=== PATIENT | female | born 1950 | race Caucasian/White ===

== ENCOUNTER 2020-12-28 11:54 | Inpatient (IN) | payer MEDICARE, SELFPAY ==
[2020-12-28 11:55] VITALS: BP 133/75; PULSE 90; RESP 18; TEMP 36.2; O2SAT 99; BMI 23.4
--- NOTE | 2020-12-28 11:58 | NURSING ---
NO OLD EKGS
--- NOTE | 2020-12-28 12:20 | EKG12_ITS ---
Test Reason : SA Blood Pressure : / mmHG Vent. Rate : 085 BPM Atrial Rate : 085 BPM P-R Int : 154 ms QRS Dur : 078 ms QT Int : 366 ms P-R-T Axes : 034 002 032 degrees QTc Int : 435 ms Suspect unspecified pacemaker failure Normal sinus rhythm Normal ECG Confirmed by MEDARDO PEDROZA, GABBIE ([id number]), newspaper managing editor SARA FINK ([id number]) on 12/31/2020 11:15:05 A M Referred By: KAYLEY Confirmed By:MELLY BATRES MD
--- NOTE | 2020-12-28 12:22 | EDS_ITS ---
HPI History of Present Illness Chief Complaint: Substance Abuse Informant: patient and spouse/S.O. Onset/Context/Timing Onset: Days (2-3) Context: Gradual Onset Timing: Continuous Quality: shaky, anxious Location: all over Current Severity: Moderate Maximum Severity: Moderate Worsened by: after stopped drinking etoh Relieved by: ativan - see below Associated Symptoms Associated Symptoms: Positive for vomiting* (on occasion, not today) and tremor; Negative for diarrhea*, fever*, rash*, seizure, palpatations, sex for drugs* and *HIV Risk Factors:Consider testing if last test > 6 months Narrative Narrative: Patient presenting requesting detox from alcohol. She is a chronic alcoholic, she drinks around 10 beers per day, her last drink was 2 or 3 days ago. [place] is from a town about 20 minutes south of [place], which is maybe 2 hours away from here or more. She has been to multiple facilities in the last several days, she was diagnosed with hyponatremia so detox programs at other places did not want to accept her, she was admitted medically to the hospital at [place], she states they treated her low sodium and said it was related to her alcohol use, she does not have a history of cirrhosis that she knows of. While she was in the hospital she was getting Ativan on occasion and she said that helped temporarily. She is feeling withdrawal symptoms again today. She was referred to the detox program at this hospital by the behavioral health case manager in [place], so she presents here for that reason and medical clearance. Medically, she has had anxiety, tremulousness, fatigue/malaise/generalized weakness, nausea and vomiting on occasion but she does not feel nauseated at this time, and she denies any other symptoms. [facility] Medical History (Updated 12/28/20 @ 14:47 by Keyonna Hill, CHANTELL-C) Alcoholism Atrial fibrillation Breast cancer GERD (gastroesophageal reflux disease) HTN (hypertension) Hyperlipidemia Hypothyroid Pacemaker Vitamin D deficiency Home Medications aspirin 81 mg PO DAILY 12/28/20 [History Last Taken 12/27/20] levothyroxine 25 mcg PO DAILY 12/28/20 [History Last Taken Unknown] lisinopril 20 mg PO DAILY 12/28/20 [History Last Taken Unknown] omeprazole 40 mg PO DAILY 12/28/20 [History Last Taken 12/28/20] rosuvastatin 40 mg PO QHS 12/28/20 [History Last Taken Unknown] thiamine HCl (vitamin B1) 100 mg PO DAILY 12/28/20 [History Last Taken 12/28/20 08:58] Allergy/AdvReac Type Severity Reaction Status Date / Time No Known Allergies Allergy Verified 12/28/20 11:57 Surgical History (Updated 12/28/20 @ 14:43 by Wendy Enamorado) History of appendectomy History of hysterectomy History of modified radical mastectomy of right breast S/P removal of thyroid nodule Social History Smoking Status: Never smoker ROS ROS ED Constitutional Constitutional ED: Reports fatigue and malaise; Denies chills or fever(s) Eyes Eyes: Denies change in vision or diplopia ENT ENT ED: Denies rhinorrhea or sore throat Cardiovascular Cardiovascular: Denies chest pain or palpitations Respiratory/Chest Respiratory/Chest: Denies cough or dyspnea Gastrointestinal Gastrointestinal: Reports nausea; Denies abdominal pain, diarrhea or vomiting Genitourinary Genitourinary ED: Denies dysuria or hematuria Musculoskeletal Musculoskeletal: Denies back pain or neck pain Integumentary Denies abscess or rash Neurologic Neurologic: Denies headache(s), paresthesias or weakness Psychiatric Psychiatric: Reports as per HPI and anxiety; Denies suicidal thoughts EXAM Physical Exam Const Vital Signs: 12/28/20 11:55 12/28/20 14:34 Temperature 97.1 F L 98.2 F Temperature Source Temporal Oral Pulse Rate 90 84 Respiratory Rate 18 16 Blood Pressure 133/75 H 140/99 H Blood Pressure Mean 94 112 Pulse Ox 99 98 Oxygen Delivery Method Room Air Room Air Positive well nourished and well developed General Appearance ED: well developed and NAD HEENT Reports moist mucous membranes normocephalic and atraumatic Eyes PERRL and EOMs intact bilaterally Neck full ROM and supple Resp normal respiratory effort and clear to auscultation bilaterally Cardio regular rate, regular rhythm and no murmurs GI non-tender and non-distended Auscultation: normoactive bowel sounds Palpation: soft Back/Spine no CVA tenderness General Back: other FROM Extremity normal to inspection General Extremety ED: Negative for edema, pulses abnormal or tenderness General Extremity: Negative for edema or pulses abnormal Neuro oriented x3, CN's II-XII intact bilaterally and no sensory deficits noted Sensorium / Orientation: awake and alert Motor Exam: strength 5/5 throughout Skin no rashes or lesions noted and no wounds MDM MDM MDM Narrative Medical decision making narrative: Patient was given Ativan which helped her symptoms. I did review some old records, her sodium was 123 when she was admitted to [place], and 128 when she was discharged. It was diagnosis likely chronic which I agree with. Discussed with hospitalist here for admission and further treatment and evaluation, for detox. Patient is clinically and hemodynamically stable. Lab Data Attestation: I reviewed the patient's lab results. Labs: Laboratory Results - last 24 hr 12/28/20 12/28/20 12/28/20 14:00 14:00 14:20 WBC 5.5 RBC 3.65 L Hgb 11.9 L Hct 35.2 L MCV 96.4 MCH 32.6 H MCHC 33.8 RDW Std Deviation 41.1 RDW Coeff of Brittany 11.6 Plt Count 110 L MPV 9.7 Immature Gran % (Auto) 0.400 Neut % (Auto) 61.3 Lymph % (Auto) 20.8 [place] % (Auto) 9.6 Eos % (Auto) 7.4 H Baso % (Auto) 0.5 Absolute Neuts (auto) 3.4 Absolute Lymphs (auto) 1.15 Nucleated RBC % 0 PT INR Sodium Potassium Chloride Carbon Dioxide Anion Gap BUN Creatinine Estim Creat Clear Calc Est GFR (MDRD) Af Amer Est GFR (MDRD) Non-Af BUN/Creatinine Ratio Glucose Calcium Total Bilirubin AST ALT Alkaline Phosphatase Total Protein Albumin Globulin Albumin/Globulin Ratio Urine Color Yellow Urine Clarity Clear Urine pH 6.0 Ur Specific [place] 1.020 Urine Protein Negative Urine Glucose (UA) Normal Urine Ketones Negative Urine Occult Blood Negative Urine Nitrite Negative Urine Bilirubin Negative Urine Urobilinogen 1 H Ur Leukocyte Esterase Negative Urine RBC 0 SEEN Urine WBC 0-5 SEEN Ur Squamous Epith Cells 0-5 SEEN Urine Bacteria 1+ Urine Mucus 0 SEEN Urine Opiates Screen NEGATIVE Urine Methadone Screen NEGATIVE Ur Barbiturates Screen NEGATIVE Ur Phencyclidine Scrn NEGATIVE Ur Amphetamines Screen NEGATIVE U Methamphetamin-MDMA NEGATIVE U Benzodiazepines Scrn POSITIVE H Urine Cocaine Screen NEGATIVE U Cannabinoids Screen NEGATIVE Ur Drug Screen Comment 12/28/20 12/28/20 14:20 14:20 WBC RBC Hgb Hct MCV MCH MCHC RDW Std Deviation RDW Coeff of Brittany Plt Count MPV Immature Gran % (Auto) Neut % (Auto) Lymph % (Auto) [place] % (Auto) Eos % (Auto) Baso % (Auto) Absolute Neuts (auto) Absolute Lymphs (auto) Nucleated RBC % PT 13.9 INR 1.1 Sodium 135 L Potassium 3.8 Chloride 99 Carbon Dioxide 28.0 Anion Gap 8 BUN 11 Creatinine 1.03 H Estim Creat Clear Calc 44.43 Est GFR (MDRD) Af Amer 68 Est GFR (MDRD) Non-Af 56 L BUN/Creatinine Ratio 10.7 Glucose 103 Calcium 9.7 Total Bilirubin 0.70 AST 76 H ALT 55 Alkaline Phosphatase 123 H Total Protein 7.6 Albumin 3.6 Globulin 4.0 Albumin/Globulin Ratio 0.9 Urine Color Urine Clarity Urine pH Ur Specific [place] Urine Protein Urine Glucose (UA) Urine Ketones Urine Occult Blood Urine Nitrite Urine Bilirubin Urine Urobilinogen Ur Leukocyte Esterase Urine RBC Urine WBC Ur Squamous Epith Cells Urine Bacteria Urine Mucus Urine Opiates Screen Urine Methadone Screen Ur Barbiturates Screen Ur Phencyclidine Scrn Ur Amphetamines Screen U Methamphetamin-MDMA U Benzodiazepines Scrn Urine Cocaine Screen U Cannabinoids Screen Ur Drug Screen Comment EKG Initial EKG: Attestation: I personally reviewed and interpreted this EKG as follows: Interpretation: Sinus Rhythm and No Acute Injury Pattern Comments: normal EKG, rate 85 Prior EKG tracings: not available for review Discharge Plan Dx/Rx/DC Orders Clinical Impression: Alcohol dependence, Alcohol withdrawal Disposition Disposition: Acute Care Hospital [facility]
--- NOTE | 2020-12-28 12:35 | EKG12_ITS ---
Test Reason : SA Blood Pressure : / mmHG Vent. Rate : 085 BPM Atrial Rate : 085 BPM P-R Int : 154 ms QRS Dur : 078 ms QT Int : 366 ms P-R-T Axes : 034 002 032 degrees QTc Int : 435 ms Suspect unspecified pacemaker failure Normal sinus rhythm Normal ECG No previous ECGs available Confirmed by ALEN PEDROZA, NEETU ([id number]), map editor SARA FINK ([id number]) on 01/01/2021 9:51:33 AM Referred By: KAYLEY Confirmed By:NEETU LOWRY MD
--- NOTE | 2020-12-28 13:23 | NURSING ---
NO OLD EKGS
[2020-12-28 14:16] LABS: Mucous, Urine 0 SEEN /hpf (<or=2+); Red Blood Cells-Urine 0 SEEN /hpf (0-5)
[2020-12-28 14:18] LABS: Color, Urine Yellow (Yellow); Glucose, Dipstick Normal (Normal); Ketone-Dipstick Negative (Negative); Leukocyte Esterase-Dipstick Negative /ul (Negative); Nitrite-Dipstick Negative (Negative); Occult Blood-Urine Negative /ul (Negative); Protein-Dipstick Negative (Negative); Urine Bilirubin Dipstick Negative (Negative); Urine Clarity Clear (Clear); Urine Urobilinogen 1 mg/dl (Normal)
[2020-12-28 14:30] LABS: Bacteria 1+ /hpf (None Seen); Squamous Epithelial Cells - UA 0-5 SEEN /hpf (5-10); White Blood Cells 0-5 SEEN /hpf (0-5)
[2020-12-28] MEDS: LORazepam 2 MG/ML Syringe 1 MG IV (14:31)
[2020-12-28] MEDS: 0.9% Normal Saline 1,000 ML 150 ML IV (14:31)
[2020-12-28 14:34] VITALS: BP 140/99; PULSE 84; RESP 16; TEMP 36.8; O2SAT 98
[2020-12-28 14:39] LABS: Absolute Lymphocyte Count 1.15 X10^3/uL (0.83-4.51); Absolute Neutrophil Count 3.4 X10^3/uL (2.0-7.7); Basophil# 0.03 X10^3/uL; Basophil% 0.5 % (0-1); Eosinophil# 0.41 X10^3/uL; Eosinophils% 7.4 % (0-5); Hematocrit 35.2 % (37-47); Hemoglobin 11.9 g/dL (12.0-15.0); Lymphocyte # 1.15 X10^3/ul (0.83-4.51); Lymphocyte % 20.8 % (19-41); Mean Corp Hgb Conc 33.8 g/dL (32-36); Mean Corpuscular Hgb 32.6 pg (27.0-32.0); Mean Corpuscular Volume 96.4 fL (81-99); Mean Platelet Vol. 9.7 fl (6.2-12.0); Monocyte# 0.53 X10^3/uL; Monocyte% 9.6 % (0-10); NRBC Flagged by Analyzer 0 % (0-5); Neutrophil # 3.38 X10^3/uL (2.7-7.7); Neutrophil % 61.3 % (47-70); Platelet Count 110 K/mm3 (150-450); RBC Distribution Width CV 11.6 % (11.6-14.6); RBC Distribution Width SD 41.1 fl (35.1-43.9); Red Blood Count 3.65 M/mm3 (4.2-5.4); White Blood Count 5.5 K/mm3 (4.4-11.0)
--- NOTE | 2020-12-28 14:39 | NURSING ---
MED SURG [facility] ALCOHOL DEPENDENCE/WITHDRAWAL
--- NOTE | 2020-12-28 14:40 | HP.PCM_ITS ---
Documented by User: VIDAL Wolff 12/28/20 14:51 HPI - General HPI Narrative KAY VILLAVICENCIO, is a 70 F who presents today for detoxification from alcohol. Patient states that she was discharged today from a hospital in [facility] following an admission for low sodium and was recommended to [facility] for inpatient detox program. Patient states her last known drink was approximately 3 days ago and reports a daily use of 10-12 beers. Patient currently exhibiting withdrawal symptoms including tremors, anxiety. Patient denies other drug/substance abuse. Labs reviewed from outside facility, sodium 134 this a.m. Other labs unremarkable. [facility] Medical History (Updated 12/28/20 @ 14:47 by VIDAL Wolff) Alcoholism Atrial fibrillation Breast cancer GERD (gastroesophageal reflux disease) HTN (hypertension) Hyperlipidemia Hypothyroid Pacemaker Vitamin D deficiency Home Medications aspirin 81 mg PO DAILY 12/28/20 [History Last Taken 12/27/20] levothyroxine 25 mcg PO DAILY 12/28/20 [History Last Taken 12/28/20] lisinopril 20 mg PO DAILY 12/28/20 [History Last Taken 12/28/20] omeprazole 40 mg PO DAILY 12/28/20 [History Last Taken 12/28/20] rosuvastatin 40 mg PO QHS 12/28/20 [History Last Taken 12/27/20] thiamine HCl (vitamin B1) 100 mg PO DAILY 12/28/20 [History Last Taken 12/28/20 08:58] Allergy/AdvReac Type Severity Reaction Status Date / Time No Known Allergies Allergy Verified 12/28/20 11:57 Surgical History (Updated 12/28/20 @ 14:43 by Wendy Enamorado) History of appendectomy History of hysterectomy History of modified radical mastectomy of right breast S/P removal of thyroid nodule Social History Smoking Status: Never smoker ROS Constitutional Constitutional: Reports fatigue and weakness; Denies anorexia, chills or fever(s) Cardiovascular Cardiovascular: Denies chest pain, edema or palpitations Respiratory/Chest Respiratory/Chest: Denies cough, shortness of breath at rest or shortness of breath with exertion Gastrointestinal Gastrointestinal: Denies abdominal pain, constipation, diarrhea, nausea or vomiting Genitourinary Genitourinary: Denies dysuria Musculoskeletal Musculoskeletal: Denies back pain, extremity pain, joint pain or joint stiffness Integumentary Integumentary: Denies dry skin Neurologic Neurologic: Reports tremor(s) Psychiatric Psychiatric: Reports anxiety and depression Endocrine Endocrinology: Denies change in body appearance Hematologic/Lymphatic Hematologic/Lymphatic: Denies easy bleeding or easy bruising Vital Signs Vital Signs Vital Signs: 12/28/20 11:55 12/28/20 14:34 Temperature 97.1 F L 98.2 F Temperature Source Temporal Oral Pulse Rate 90 84 Respiratory Rate 18 16 Blood Pressure 133/75 H 140/99 H Blood Pressure Mean 94 112 Pulse Ox 99 98 Oxygen Delivery Method Room Air Room Air Weight Weight: 141 lb Body Mass Index (BMI) 23.4 Physical Exam Const alert and oriented x3 HEENT normocephalic and head/scalp atraumatic Eyes conjunctivae normal and no scleral icterus Neck no lymphadenopathy, supple and no JVD General: trachea midline Resp normal respiratory effort, normal air movement and clear to auscultation bilaterally Cardio regular rate, regular rhythm, S1 normal heart sound and S2 normal heart sound GI normal to inspection, nondistended, normoactive bowel sounds, soft to palpation and non-tender Extremity normal capillary refill and no clubbing, cyanosis or edema General Extremity: no tenderness to palpation of joints or extremities Skin General Skin Exam: no breakdown and turgor normal Lesions: no lesions Rashes: no rashes Neuro oriented x3 and moves all extremities Speech: speech normal Motor Exam: tremor Type: Positive for resting Positive for bilateral upper extremity Psych cooperative Appearance: appropriate Mood & Affect: anxious Results Lab / Micro Data Result Diagrams: 12/28/20 14:20 12/28/20 14:20 Labs: Laboratory Results - last 24 hr 12/28/20 12/28/20 12/28/20 14:00 14:00 14:20 WBC 5.5 RBC 3.65 L Hgb 11.9 L Hct 35.2 L MCV 96.4 MCH 32.6 H MCHC 33.8 RDW Std Deviation 41.1 RDW Coeff of Brittany 11.6 Plt Count 110 L MPV 9.7 Immature Gran % (Auto) 0.400 Neut % (Auto) 61.3 Lymph % (Auto) 20.8 [place] % (Auto) 9.6 Eos % (Auto) 7.4 H Baso % (Auto) 0.5 Absolute Neuts (auto) 3.4 Absolute Lymphs (auto) 1.15 Nucleated RBC % 0 Urine Color Yellow Urine Clarity Clear Urine pH 6.0 Ur Specific [place] 1.020 Urine Protein Negative Urine Glucose (UA) Normal Urine Ketones Negative Urine Occult Blood Negative Urine Nitrite Negative Urine Bilirubin Negative Urine Urobilinogen 1 H Ur Leukocyte Esterase Negative Urine RBC 0 SEEN Urine WBC 0-5 SEEN Ur Squamous Epith Cells 0-5 SEEN Urine Bacteria 1+ Urine Mucus 0 SEEN Ur Drug Screen Comment Assessment & Plan Assessment/Plan (1) Alcohol withdrawal: QUALIFIERS: Complication of substance-induced condition: uncomplicated Qualified Code(s): F10.230 - Alcohol dependence with withdrawal, uncomplicated PLAN: 1. Alcohol withdrawal -Admit to [facility] for participation in the withdrawal program -Phenobarb taper ordered along with CIWA's -Supportive medications also ordered per protocol -Oxygen per protocol -Case management consulted for coordination with outpatient 180 program -Vital signs per protocol 2. Hyponatremia -Sodium 134 this morning per outside laboratory results -Will monitor with daily BMP 3. Hypertension -Currently elevated at 140/99, however likely due to patient's withdrawal from alcohol -Will continue lisinopril daily -Vital signs per protocol, trend BP and heart rate 4. Hypothyroidism -Continue levothyroxine DVT prophylaxis-no pharmacological prophylaxis indicated, encourage ambulation This patient was seen by VIDAL Wolff under the supervision of Dr. Indira watters. Documented by User: Dr. Sergio Heart DO 12/28/20 15:58 HPI - General General Date of Admission: 12/28/20 [facility] Medical History (Updated 12/28/20 @ 14:47 by VIDAL Wolff) Alcoholism Atrial fibrillation Breast cancer GERD (gastroesophageal reflux disease) HTN (hypertension) Hyperlipidemia Hypothyroid Pacemaker Vitamin D deficiency Home Medications aspirin 81 mg PO DAILY 12/28/20 [History Last Taken 12/27/20] levothyroxine 25 mcg PO DAILY 12/28/20 [History Last Taken 12/28/20] lisinopril 20 mg PO DAILY 12/28/20 [History Last Taken 12/28/20] omeprazole 40 mg PO DAILY 12/28/20 [History Last Taken 12/28/20] rosuvastatin 40 mg PO QHS 12/28/20 [History Last Taken 12/27/20] thiamine HCl (vitamin B1) 100 mg PO DAILY 12/28/20 [History Last Taken 12/28/20 08:58] Allergy/AdvReac Type Severity Reaction Status Date / Time No Known Allergies Allergy Verified 12/28/20 11:57 Surgical History (Updated 12/28/20 @ 14:43 by Wendy Enamorado) History of appendectomy History of hysterectomy History of modified radical mastectomy of right breast S/P removal of thyroid nodule Social History Smoking Status: Never smoker Results Lab / Micro Data Result Diagrams: 12/28/20 14:20 12/28/20 14:20 Charges/Coding Addendum Addendum: Patient was seen and examined independently of Cristiane Hill, she came to the emergency room at [facility] requesting services for alcohol detox, she had been discharged from a hospital this morning, she had been hospitalized for hyponatremia, patient has not had anything to drink in 4 days. She complains of feeling nervous and anxious. On examination she appeared in good health and spirits, she does not appear to be in any distress. Vital signs as documented. Skin warm and dry and without overt rashes. Neck without JVD, thyroid appears normal, trachea is midline, neck is supple. Lungs clear, normal air movement was noted. Heart exam notable for regular rhythm, normal sounds and absence of murmurs, rubs or gallops. Abdomen unremarkable and without evidence of organomegaly, masses, or abdominal aortic enlargement, bowel sounds are present in all 4 quadrants, no abdominal tenderness was noted. Extremities nonedematous, no cyanosis was noted, no clubbing was noted. Neuro: Cranial nerves II through XII are grossly intact, no focal motor deficits were noted, sensation to light touch and pinprick is intact, motor exam 5/5 throughout. Psych: Patient is alert and oriented x3, she does appear slightly anxious Patient will be admitted to MedSurg 3 using the alcohol detox order set, patient told me she prefers to do inpatient detox services after she is discharged from the hospital here. I have reviewed Cristiane Arnett's history and physical including her medical assessment and plan of care and endorse it. Visit Charges Inpatient E&M: [id number] Init Hosp L3
[2020-12-28 14:47] LABS: ALB/GLOB Ratio 0.9 RATIO (0.9-2.4); AST(SGOT) 76 U/L (15-37); Alanine Aminotransfer ALT/SGPT 55 U/L (13-56); Albumin, Serum 3.6 g/dL (3.2-5.0); Alkaline Phosphatase 123 U/L (45-117); Anion Gap 8 (5-15); BUN 11 mg/dL (7-18); BUN/Creat Ratio 10.7 RATIO (10-20); Calcium,Total 9.7 mg/dL (8.5-10.1); Chloride 99 mmol/L (98-107); Creatinine, Serum 1.03 mg/dL (0.55-1.02); EST Glomerular Filtration Rate 56 mL/min (>60); Est Glom Filt Rate - Afr Amer 68 mL/min (>60); Estimated Creatinine Clearance 44.43 ml/min; Glucose 103 mg/dL (74-106); International Normalized Ratio 1.1; Potassium 3.8 mmol/L (3.5-5.1); Protein, Total 7.6 g/dL (6.4-8.2); Prothrombin Time (Protime)PT. 13.9 SECONDS (11.7-14.9); Sodium Level 135 mmol/L (136-145)
[2020-12-28 14:53] LABS: Amphetamine Urine VISTA NEGATIVE (<1000 ng/mL); Barbiturate Urine VISTA NEGATIVE (< 200 ng/mL); Benzodiazepine Urine VISTA POSITIVE (< 200 ng/mL); Cocaine Urine VISTA NEGATIVE (< 300 ng/mL); Ecstacy Urine VISTA NEGATIVE (< 500 ng/mL); Methadone Urine VISTA NEGATIVE (< 300 ng/mL); PCP Urine VISTA NEGATIVE (< 25 ng/mL); THC Urine VISTA NEGATIVE (< 50 ng/mL); Vista UDS pH Range 6
--- NOTE | 2020-12-28 14:58 | NURSING ---
RM [id number]
[2020-12-28 15:34] VITALS: BMI 21.2
[2020-12-28 15:40] VITALS: BP 157/92; PULSE 80; RESP 16; TEMP 36.7; O2SAT 97
[2020-12-28] MEDS: Phenobarbital 32.4 MG Tablet PO ×2 (16:09→20:18)
--- NOTE | 2020-12-28 16:19 | CM.ED ---
Sw Note SHELDON called [employer] and left voice mail message for July advising of patient's admission to [facility] program. SHELDON requested call back. Plan: JAZMIN WALKER
--- NOTE | 2020-12-28 18:29 | CM.ED ---
SHELODN Note Reason for Referral: [facility] admission Referral Source: Case Find SW called Treatment Navigator at [facility] and spoke to July. SHELDON updated July about patient's admission to [facility]. July will be in tomorrow to see patient. Plan: Treatment Navigator will follow up with patient. Vivi WALKER
[2020-12-28 20:11] VITALS: BP 160/96; PULSE 86; RESP 18; TEMP 36.5; O2SAT 100
[2020-12-28] MEDS: hydrOXYzine PAM 25 MG Capsule 50 MG PO (20:18)
[2020-12-28] MEDS: Ondansetron 8 MG Tablet PO (20:18)
[2020-12-28 22:05] VITALS: BP 141/84; PULSE 80; RESP 18; TEMP 36.5; O2SAT 100
[2020-12-28] MEDS: traZODone 100 MG Tablet PO (22:09)
[2020-12-28] MEDS: Atorvastatin Calcium 80 MG Tablet PO (22:09)
[2020-12-29] VITALS (8 sets, daily range): BP systolic 98–130; BP diastolic 64–85; PULSE 58–99; RESP 16–18; TEMP 36.2–36.6; O2SAT 94–99; BMI 21.2
[2020-12-29] MEDS: Gabapentin 300 MG Capsule PO (00:05)
[2020-12-29] MEDS: Phenobarbital 32.4 MG Tablet PO ×6 (00:05→19:57)
[2020-12-29] MEDS: hydrOXYzine PAM 25 MG Capsule 50 MG PO (04:53)
[2020-12-29] MEDS: Levothyroxine 25 MCG TABLET PO (04:53)
[2020-12-29 06:48] LABS: Anion Gap 8 (5-15); BUN 10 mg/dL (7-18); BUN/Creat Ratio 10.9 RATIO (10-20); Calcium,Total 8.9 mg/dL (8.5-10.1); Chloride 104 mmol/L (98-107); Creatinine, Serum 0.92 mg/dL (0.55-1.02); EST Glomerular Filtration Rate 64 mL/min (>60); Est Glom Filt Rate - Afr Amer 77 mL/min (>60); Estimated Creatinine Clearance 49.74 ml/min; Glucose 101 mg/dL (74-106); Potassium 3.7 mmol/L (3.5-5.1); Sodium Level 137 mmol/L (136-145)
[2020-12-29] MEDS: Folic Acid 1 MG Tablet PO (07:58)
[2020-12-29] MEDS: Pantoprazole Sodium 40 MG Tablet PO (07:58)
[2020-12-29] MEDS: Lisinopril 20 MG Tablet PO (07:58)
[2020-12-29] MEDS: Thiamine Hydrochloride 100 MG Tablet PO (07:58)
[2020-12-29] MEDS: Aspirin 81 MG TAB.CHEW PO (08:00)
--- NOTE | 2020-12-29 10:39 | PN.HOSP_ITS ---
Documented by User: Keyonna Hill NP-C 12/29/20 10:44 Subjective Subjective Patient seen and examined. Patient sitting in bed eating breakfast no distress noted. Patient states that she still is not feeling well. Patient reports tremors and some residual weakness from hyponatremia. Patient currently denies fever, chills, shortness of breath, chest pain, nausea, vomiting. Objective Data Objective Data Vital Signs: Vital Signs Temp Pulse Resp BP Pulse Ox 97.4 F L 58 L 16 98/76 99 12/29/20 08:53 12/29/20 08:53 12/29/20 08:53 12/29/20 08:53 12/29/20 08:53 Oxygen Delivery Method Room Air Weight: 127 lb 3.2 oz Body Mass Index (BMI) 21.2 Intake & Output: Intake and Output for Last 24 Hours 12/27/20 12/28/20 12/29/20 23:59 23:59 23:59 Intake Total 1277.5 / 1277.5 350 / 350 Balance 1277.5 / 1277.5 350 / 350 Lab / Micro Data Result Diagrams: 12/28/20 14:20 12/29/20 06:18 Labs: Laboratory Results - last 24 hr 12/28/20 12/28/20 12/28/20 14:00 14:00 14:20 WBC 5.5 RBC 3.65 L Hgb 11.9 L Hct 35.2 L MCV 96.4 MCH 32.6 H MCHC 33.8 RDW Std Deviation 41.1 RDW Coeff of Brittany 11.6 Plt Count 110 L MPV 9.7 Immature Gran % (Auto) 0.400 Neut % (Auto) 61.3 Lymph % (Auto) 20.8 [place] % (Auto) 9.6 Eos % (Auto) 7.4 H Baso % (Auto) 0.5 Absolute Neuts (auto) 3.4 Absolute Lymphs (auto) 1.15 Nucleated RBC % 0 PT INR Sodium Potassium Chloride Carbon Dioxide Anion Gap BUN Creatinine Estim Creat Clear Calc Est GFR (MDRD) Af Amer Est GFR (MDRD) Non-Af BUN/Creatinine Ratio Glucose Calcium Total Bilirubin AST ALT Alkaline Phosphatase Total Protein Albumin Globulin Albumin/Globulin Ratio Urine Color Yellow Urine Clarity Clear Urine pH 6.0 Ur Specific [place] 1.020 Urine Protein Negative Urine Glucose (UA) Normal Urine Ketones Negative Urine Occult Blood Negative Urine Nitrite Negative Urine Bilirubin Negative Urine Urobilinogen 1 H Ur Leukocyte Esterase Negative Urine RBC 0 SEEN Urine WBC 0-5 SEEN Ur Squamous Epith Cells 0-5 SEEN Urine Bacteria 1+ Urine Mucus 0 SEEN Urine Opiates Screen NEGATIVE Urine Methadone Screen NEGATIVE Ur Barbiturates Screen NEGATIVE Ur Phencyclidine Scrn NEGATIVE Ur Amphetamines Screen NEGATIVE U Methamphetamin-MDMA NEGATIVE U Benzodiazepines Scrn POSITIVE H Urine Cocaine Screen NEGATIVE U Cannabinoids Screen NEGATIVE Ur Drug Screen Comment Ethyl Alcohol 12/28/20 12/28/20 12/28/20 14:20 14:20 14:20 WBC RBC Hgb Hct MCV MCH MCHC RDW Std Deviation RDW Coeff of Brittany Plt Count MPV Immature Gran % (Auto) Neut % (Auto) Lymph % (Auto) [place] % (Auto) Eos % (Auto) Baso % (Auto) Absolute Neuts (auto) Absolute Lymphs (auto) Nucleated RBC % PT 13.9 INR 1.1 Sodium 135 L Potassium 3.8 Chloride 99 Carbon Dioxide 28.0 Anion Gap 8 BUN 11 Creatinine 1.03 H Estim Creat Clear Calc 44.43 Est GFR (MDRD) Af Amer 68 Est GFR (MDRD) Non-Af 56 L BUN/Creatinine Ratio 10.7 Glucose 103 Calcium 9.7 Total Bilirubin 0.70 AST 76 H ALT 55 Alkaline Phosphatase 123 H Total Protein 7.6 Albumin 3.6 Globulin 4.0 Albumin/Globulin Ratio 0.9 Urine Color Urine Clarity Urine pH Ur Specific [place] Urine Protein Urine Glucose (UA) Urine Ketones Urine Occult Blood Urine Nitrite Urine Bilirubin Urine Urobilinogen Ur Leukocyte Esterase Urine RBC Urine WBC Ur Squamous Epith Cells Urine Bacteria Urine Mucus Urine Opiates Screen Urine Methadone Screen Ur Barbiturates Screen Ur Phencyclidine Scrn Ur Amphetamines Screen U Methamphetamin-MDMA U Benzodiazepines Scrn Urine Cocaine Screen U Cannabinoids Screen Ur Drug Screen Comment Ethyl Alcohol 6.0 12/29/20 06:18 WBC RBC Hgb Hct MCV MCH MCHC RDW Std Deviation RDW Coeff of Brittany Plt Count MPV Immature Gran % (Auto) Neut % (Auto) Lymph % (Auto) [place] % (Auto) Eos % (Auto) Baso % (Auto) Absolute Neuts (auto) Absolute Lymphs (auto) Nucleated RBC % PT INR Sodium 137 Potassium 3.7 Chloride 104 Carbon Dioxide 25.0 Anion Gap 8 BUN 10 Creatinine 0.92 Estim Creat Clear Calc 49.74 Est GFR (MDRD) Af Amer 77 Est GFR (MDRD) Non-Af 64 BUN/Creatinine Ratio 10.9 Glucose 101 Calcium 8.9 Total Bilirubin AST ALT Alkaline Phosphatase Total Protein Albumin Globulin Albumin/Globulin Ratio Urine Color Urine Clarity Urine pH Ur Specific [place] Urine Protein Urine Glucose (UA) Urine Ketones Urine Occult Blood Urine Nitrite Urine Bilirubin Urine Urobilinogen Ur Leukocyte Esterase Urine RBC Urine WBC Ur Squamous Epith Cells Urine Bacteria Urine Mucus Urine Opiates Screen Urine Methadone Screen Ur Barbiturates Screen Ur Phencyclidine Scrn Ur Amphetamines Screen U Methamphetamin-MDMA U Benzodiazepines Scrn Urine Cocaine Screen U Cannabinoids Screen Ur Drug Screen Comment Ethyl Alcohol Physical Exam Const alert and oriented x3 HEENT normocephalic and head/scalp atraumatic Eyes conjunctivae normal and no scleral icterus Neck no lymphadenopathy, supple and no JVD General: trachea midline Resp normal respiratory effort, normal air movement and clear to auscultation bilaterally Cardio regular rate, regular rhythm, S1 normal heart sound and S2 normal heart sound GI normal to inspection, nondistended, normoactive bowel sounds, soft to palpation and non-tender Extremity normal capillary refill and no clubbing, cyanosis or edema General Extremity: no tenderness to palpation of joints or extremities Peripheral Pulses: Yes pulses 2+ throughout Skin General Skin Exam: no breakdown and turgor normal Lesions: no lesions Rashes: no rashes Neuro oriented x3 and moves all extremities Speech: speech normal Motor Exam: tremor Type: Positive for resting Positive for bilateral upper extremity Psych mental status grossly normal, thought process normal and cooperative Appearance: appropriate Attitude: withdrawn Mood & Affect: anxious Assessment & Plan Assessment/Plan (1) Alcohol dependence: QUALIFIERS: Complication of substance-induced condition: uncomplicated Substance use status: in withdrawal Qualified Code(s): F10.230 - Alcohol dependence with withdrawal, uncomplicated (2) Alcohol withdrawal: QUALIFIERS: Complication of substance-induced condition: uncomplicated Qualified Code(s): F10.230 - Alcohol dependence with withdrawal, uncomplicated PLAN: 1. Alcohol withdrawal -Continue phenobarb taper along with CIWA's -Supportive medications also ordered per protocol -Oxygen per protocol -Case management consulted for coordination with outpatient 180 program, patient would like to transition to residential inpatient program upon discharge -Vital signs per protocol 2. Hyponatremia -Resolved, sodium 137 this morning 3. Hypertension -Stable -Will continue lisinopril daily -Vital signs per protocol, trend BP and heart rate 4. Hypothyroidism -Continue levothyroxine DVT prophylaxis-no pharmacological prophylaxis indicated, encourage ambulation This patient was seen by VIDAL Wolff under the supervision of Dr. Mcpherson. Documented by User: Dr. Katie Mcpherson MD 12/29/20 17:00 Objective Data Lab / Micro Data Result Diagrams: 12/28/20 14:20 12/29/20 06:18 Charges/Coding Addendum Addendum: Patient seen by Keyonna DRAKE under my supervision Patient seen and examined. She was admitted for alcohol detox. She told feels weak and lethargic complains of some tremors. Review of systems otherwise neg ative. O/E: Const alert and oriented x3 HEENT normocephalic and head/scalp atraumatic Eyes conjunctivae normal and no scleral icterus Neck no lymphadenopathy, supple and no JVD General: trachea midline Resp normal respiratory effort, normal air movement and clear to auscultation bilaterally Cardio regular rate, regular rhythm, S1 normal heart sound and S2 normal heart sound GI normal to inspection, nondistended, normoactive bowel sounds, soft to palpation and non-tender Extremity normal capillary refill and no clubbing, cyanosis or edema General Extremity: no tenderness to palpation of joints or extremities Peripheral Pulses: Yes pulses 2+ throughout Skin General Skin Exam: no breakdown and turgor normal Lesions: no lesions Rashes: no rashes Neuro oriented x3 and moves all extremities Speech: speech normal Motor Exam: tremor Type: Positive for resting Positive for bilateral upper extremity Psych mental status grossly normal, thought process normal and cooperative Appearance:flat affect Attitude: withdrawn Mood & Affect: Plan is to continue on alcohol withdrawal. P.o. thiamine, multivitamin folic acid. Hyponatremia is resolved with sodium being 137 today. Continue lisinopril for high blood pressure and continue Synthroid. Encourage ambulation for DVT prophylaxis. Rest as per Keyonna Hill, AUTO RENTAL SUPERVISOR-C's note which I have reviewed and endorsed. Visit Charges Inpatient E&M: 32251 Subs Hosp L2
--- NOTE | 2020-12-29 16:45 | EX.NTREPO ---
Medical Nutrition Therapy - History Nutrition Services has been consulted to:: Manage nutrient details of diet order Current diet/nutrition support order:: Cardiac diet--select - Anthropometric Measurements Height:: 5 ft 5 in Weight:: 57.7 kg Body Mass Index (BMI):: 21.2 - Relevant Labs Relevant Labs:: RBC 3.65 M/mm3 (4.2-5.4) L 12/28/20 14:20 Hgb 11.9 g/dL (12.0-15.0) L 12/28/20 14:20 Hct 35.2 % (37-47) L 12/28/20 14:20 MCH 32.6 pg (27.0-32.0) H 12/28/20 14:20 Plt Count 110 K/mm3 (150-450) L 12/28/20 14:20 Eos % (Auto) 7.4 % (0-5) H 12/28/20 14:20 Sodium 135 mmol/L (136-145) L 12/28/20 14:20 Creatinine 1.03 mg/dL (0.55-1.02) H 12/28/20 14:20 Est GFR (MDRD) Non-Af 56 mL/min (>60) L 12/28/20 14:20 AST 76 U/L (15-37) H 12/28/20 14:20 Alkaline Phosphatase 123 U/L (45-117) H 12/28/20 14:20 - Assessment Food and Nutrient Intake: Pt reports just me and my cats so, why cook pt has not been eating or cooking for the past 5-6 months; denies difficulty chewing and swallowing. Pt took more than 50% of breakfast today but, dislikes eggs. Pt will not take ensure as she reports that it makes me throw up Pt is willing to try blanca magic cup and blanca milkshakes for tolerance--will offer w/ meals. Wt loss~25% over the past 5-6 months is significant for severe malnutrition especially given oral intake meeting less than 50% over the past 6-8 months per pt report. +NFPA and pt with clavicular, orbital and temporal muscle/fat wasting. - Nutrition Diagnosis: Clinical Problem Chronic Disease or Condition Related Malnutrition Clinical Problem - Etiology: Severe Protein-Calorie Malnutrition in the context of social circumstance related to ETOH abuse/starvation Clinical Problem - Signs/Symptoms: as evidenced by wt loss~25% over the past 5-6 months, oral intake meeting less than 50% over the past 6-8 months per pt report and +nutrition focused physical exam showing moderate clavicular, orbital and temporal muscle/fat wasting. Status: Active Problem - Protein Calorie Malnutrition Evidence of Malnutrition Exists: Yes Severe Protein Calorie Malnutrition:: Social/Behavioral/Environmental - Nutrition Intervention Nutrition Prescription: Estimated nutrition needs~5620-3118 kcal (30 kcal/Kg +250 kcal) and ~80-90 gm pro (1.5 gm pro/Kg) per day. Estimated fluid needs~1700-1900ml/day (30 ml/Kg). - Food / Nutrient Delivery Interventions Summary of nutrition intervention:: Adjust diet order, Provide oral nutrition supplement Nutrition support ordered as / adjusted to:: Given severe protein-energy malnutrition, will liberalize diet to regular/no added salt. Will offer blanca magic cup BID w/ lunch and dinner in addition to blanca magic cup milkshake w/ breakfast to provide an additional 870 kcal and 27 gm protein if consumed. Pt dislikes ensure (both enlive and clear) so, will not provide per pt request. Nutrition education provided?: Yes - ?patient's understanding but, willing to try magic cup only - MNT Monitoring Active Nutrition Patient: Yes Nutrition Status: Requires Follow Up 3-5 Days
[2020-12-30] VITALS (7 sets, daily range): BP systolic 107–138; BP diastolic 67–84; PULSE 81–91; RESP 16–18; TEMP 36.2–36.6; O2SAT 95–98
[2020-12-30] MEDS: Atorvastatin Calcium 80 MG Tablet PO ×2 (00:02→20:44)
[2020-12-30] MEDS: Phenobarbital 32.4 MG Tablet PO ×6 (00:02→20:14)
[2020-12-30] MEDS: Levothyroxine 25 MCG TABLET PO (05:06)
[2020-12-30] MEDS: Pantoprazole Sodium 40 MG Tablet PO (08:46)
[2020-12-30] MEDS: Thiamine Hydrochloride 100 MG Tablet PO (08:46)
[2020-12-30] MEDS: Lisinopril 20 MG Tablet PO (08:46)
[2020-12-30] MEDS: Folic Acid 1 MG Tablet PO (08:46)
[2020-12-30] MEDS: Aspirin 81 MG TAB.CHEW PO ×2 (08:47)
--- NOTE | 2020-12-30 13:35 | PN.HOSP_ITS ---
Subjective Subjective Patient seen and examined. She was much more alert this morning and says she had had some tremors earlier in the morning but had improved. She had no other complaints and review of systems otherwise negative. She has remained hemodynamically stable. Objective Data Objective Data Vital Signs: Vital Signs Temp Pulse Resp BP Pulse Ox 97.2 F L 85 18 107/67 97 12/30/20 11:15 12/30/20 11:15 12/30/20 11:15 12/30/20 11:15 12/30/20 11:15 Oxygen Delivery Method Room Air Weight: 127 lb 3.307 oz Body Mass Index (BMI) 21.2 Intake & Output: Intake and Output for Last 24 Hours 12/28/20 12/29/20 12/30/20 23:59 23:59 23:59 Intake Total 1277.5 / 1277.5 1300 / 1300 480 / 480 Balance 1277.5 / 1277.5 1300 / 1300 480 / 480 Lab / Micro Data Result Diagrams: 12/28/20 14:20 12/29/20 06:18 Physical Exam Const alert, oriented x3 and no apparent distress Exam Limitations: no limitations HEENT head/scalp atraumatic, moist oral mucous membranes and oropharynx normal Head and Scalp: normocephalic Eyes PERRL, EOMs intact bilaterally and conjunctivae normal Neck no lymphadenopathy Resp normal respiratory effort, no retractions, no use of accessory muscles and clear to auscultation bilaterally Cardio regular rate, regular rhythm, S1 normal heart sound, S2 normal heart sound and no murmurs GI normal to inspection, nondistended, normoactive bowel sounds, soft to palpation, non-tender and non-distended Extremity normal to inspection, full ROM and no clubbing, cyanosis or edema Peripheral Pulses: Yes pulses 2+ throughout Skin no rashes or lesions noted Neuro oriented x3 and moves all extremities Sensorium / Orientation: awake and alert Motor Exam: strength 5/5 throughout Psych affect normal Assessment & Plan Assessment/Plan (1) Alcohol dependence: QUALIFIERS: Substance use status: in withdrawal Complication of substance-induced condition: uncomplicated Qualified Code(s): F10.230 - Alcohol dependence with withdrawal, uncomplicated (2) Alcohol withdrawal: QUALIFIERS: Complication of substance-induced condition: u ncomplicated Qualified Code(s): F10.230 - Alcohol dependence with withdrawal, uncomplicated PLAN: #Acute alcohol withdrawal * on alcohol withdrawal protocol with phenobarbital * on thiamine, folic acid and multivites * adjunctive meds for supportive treatment * #Hypertension; on lisinopril. DVT prophylaxis: low risk. Encouraged to ambulate Disposition: wants to go to an inpatient rehab facility once acute detox is completed. Case management to help facilitate discharge. Charges/Coding Visit Charges Inpatient E&M: 45228 Subs Hosp L2
[2020-12-31] VITALS (10 sets, daily range): BP systolic 134–166; BP diastolic 79–88; PULSE 80–91; RESP 16–18; TEMP 36.3–36.9; O2SAT 96–100
[2020-12-31] MEDS: Phenobarbital 32.4 MG Tablet PO ×5 (00:20→23:14)
[2020-12-31] MEDS: Levothyroxine 25 MCG TABLET PO (05:05)
[2020-12-31] MEDS: Aspirin 81 MG TAB.CHEW PO (07:57)
[2020-12-31] MEDS: Thiamine Hydrochloride 100 MG Tablet PO (07:57)
[2020-12-31] MEDS: Folic Acid 1 MG Tablet PO (07:57)
[2020-12-31] MEDS: Pantoprazole Sodium 40 MG Tablet PO (09:45)
[2020-12-31] MEDS: Lisinopril 20 MG Tablet PO (09:45)
--- NOTE | 2020-12-31 10:42 | PCM.PN.HOSP ---
Subjective Subjective Patient was seen and examined. No new complaints. No acute events overnight. Objective Data Objective Data Vital Signs: Vital Signs Temp Pulse Resp BP Pulse Ox 98.1 F 83 18 160/79 H 100 12/31/20 07:51 12/31/20 07:51 12/31/20 07:51 12/31/20 07:51 12/31/20 07:51 Oxygen Delivery Method Room Air Weight: 57.7 kg Body Mass Index (BMI) 21.2 Intake & Output: Intake and Output for Last 24 Hours 12/29/20 12/30/20 12/31/20 23:59 23:59 23:59 Intake Total 1300 / 1300 880 / 880 Balance 1300 / 1300 880 / 880 Lab / Micro Data Result Diagrams: 12/28/20 14:20 12/29/20 06:18 Physical Exam Narrative Physical exam: General: Alert, Oriented x3, appears lethargic, cooperative, No apparent distress, Well developed HEENT: Atraumatic Oral: Moist Mucosa Neck: Supple Lungs: Clear to auscultation Cardiovascular: HS I+II, regular, no murmurs Abdomen: Bowel Sounds Present, Soft, Non Tender Extremities: No edema Skin: No rashes, No breakdown Neurological: Grossly intact Assessment & Plan Assessment/Plan (1) Alcohol dependence: QUALIFIERS: Substance use status: in withdrawal Complication of substance-induced condition: uncomplicated Qualified Code(s): F10.230 - Alcohol dependence with withdrawal, uncomplicated (2) Alcohol withdrawal: QUALIFIERS: Complication of substance-induced condition: uncomplicated Qualified Code(s): F10.230 - Alcohol dependence with withdrawal, uncomplicated PLAN: 1. Acute alcohol withdrawal, continue on the phenobarbital withdrawal protocol 2. Hypertension, controlled, continue lisinopril 3. Debility related to the above 4. Rest of chronic medical conditions remained stable Meds reviewed Charges/Coding Visit Charges Inpatient E&M: 30876 Subs Hosp L2
--- NOTE | 2020-12-31 12:55 | CASEMGMT ---
SHELDON Cappsah Crawford called Vesna Chandler w/ [facility] to clarify discharge plan from their perspective, message left. SW met w/pt in regard to discharge plan as pt was unsteady with therapy today. Pt is normally independent, lives home alone, uses no DME. Her moved out 6-7 months ago. SW spoke w/pt about going somewhere to gain physical strength and function, to a [place] [facility] [place]. Pt states she is looking for help with her drinking, and wants to go to a residential program for this, not to a fdc. SW did give her a list of [place] [facility] [place] facilities in her geographic area that take her insurance. SW explained that there may be a chance she would be too weak to go straight to a residential program, and she may want to consider going to a [place] [facility] [place] facility initially. Pt expressed frustration, states she has been in 3 hospitals and still hasn't gotten the help she needs. SW offered support. SW will continue to follow, waiting to hear back from Vesna at . [facility]
[2020-12-31] MEDS: hydrOXYzine PAM 25 MG Capsule 50 MG PO (20:33)
[2020-12-31] MEDS: Atorvastatin Calcium 80 MG Tablet PO (20:33)
[2020-12-31] MEDS: traZODone 100 MG Tablet PO (23:14)
[2020-12-31] MEDS: Gabapentin 300 MG Capsule PO (23:14)
[2021-01-01 05:51] VITALS: BP 115/78; PULSE 81; RESP 14; TEMP 36.4; O2SAT 96
[2021-01-01] MEDS: Levothyroxine 25 MCG TABLET PO (06:08)
[2021-01-01] MEDS: Phenobarbital 32.4 MG Tablet PO ×3 (06:08→18:18)
[2021-01-01] MEDS: 0.9% Saline Lock 10 ML Syringe IV ×3 (06:08→21:48)
[2021-01-01 08:24] VITALS: BP 127/85; PULSE 80; RESP 18; TEMP 36.7; O2SAT 95
[2021-01-01] MEDS: Pantoprazole Sodium 40 MG Tablet PO (08:38)
[2021-01-01] MEDS: Aspirin 81 MG TAB.CHEW PO (08:38)
[2021-01-01] MEDS: Thiamine Hydrochloride 100 MG Tablet PO (08:38)
[2021-01-01] MEDS: Folic Acid 1 MG Tablet PO (08:38)
[2021-01-01] MEDS: Lisinopril 20 MG Tablet PO (08:38)
[2021-01-01 08:58] LABS: Absolute Lymphocyte Count 1.35 X10^3/uL (0.83-4.51); Absolute Neutrophil Count 2.6 X10^3/uL (2.0-7.7); Basophil# 0.04 X10^3/uL; Basophil% 0.8 % (0-1); Eosinophil# 0.57 X10^3/uL; Eosinophils% 10.9 % (0-5); Hematocrit 33.2 % (37-47); Hemoglobin 11.2 g/dL (12.0-15.0); Lymphocyte # 1.35 X10^3/ul (0.83-4.51); Lymphocyte % 25.9 % (19-41); Mean Corp Hgb Conc 33.7 g/dL (32-36); Mean Corpuscular Hgb 32.7 pg (27.0-32.0); Mean Corpuscular Volume 97.1 fL (81-99); Mean Platelet Vol. 9.5 fl (6.2-12.0); Monocyte% 13.4 % (0-10); NRBC Flagged by Analyzer 0 % (0-5); Neutrophil # 2.55 X10^3/uL (2.7-7.7); Neutrophil % 48.8 % (47-70); Platelet Count 155 K/mm3 (150-450); RBC Distribution Width CV 11.9 % (11.6-14.6); RBC Distribution Width SD 42.6 fl (35.1-43.9); Red Blood Count 3.42 M/mm3 (4.2-5.4); White Blood Count 5.2 K/mm3 (4.4-11.0)
[2021-01-01 09:21] VITALS: O2SAT 95
[2021-01-01 09:24] LABS: ALB/GLOB Ratio 0.8 RATIO (0.9-2.4); AST(SGOT) 41 U/L (15-37); Alanine Aminotransfer ALT/SGPT 36 U/L (13-56); Alkaline Phosphatase 115 U/L (45-117); Anion Gap 7 (5-15); BUN 10 mg/dL (7-18); BUN/Creat Ratio 10.6 RATIO (10-20); Calcium,Total 9.1 mg/dL (8.5-10.1); Chloride 104 mmol/L (98-107); Creatinine, Serum 0.94 mg/dL (0.55-1.02); EST Glomerular Filtration Rate 62 mL/min (>60); Est Glom Filt Rate - Afr Amer 75 mL/min (>60); Estimated Creatinine Clearance 48.68 ml/min; Globulin 3.6 g/dL (2.2-4.2); Glucose 88 mg/dL (74-106); Potassium 3.8 mmol/L (3.5-5.1); Protein, Total 6.6 g/dL (6.4-8.2); Sodium Level 137 mmol/L (136-145)
--- NOTE | 2021-01-01 11:11 | PCM.PN.HOSP ---
Subjective Subjective Patient was seen and examined. No acute events overnight. She complains of feeling weak. She was discharged to a custodial facility. Objective Data Objective Data Vital Signs: Vital Signs Temp Pulse Resp BP Pulse Ox 98.0 F 80 18 127/85 H 95 01/01/21 08:24 01/01/21 08:24 01/01/21 08:24 01/01/21 08:24 01/01/21 09:21 Oxygen Delivery Method Room Air Weight: 57.7 kg Body Mass Index (BMI) 21.2 Intake & Output: Intake and Output for Last 24 Hours 12/30/20 12/31/20 01/01/21 23:59 23:59 23:59 Intake Total 880 / 880 540 / 540 300 / 300 Balance 880 / 880 540 / 540 300 / 300 Lab / Micro Data Result Diagrams: 01/01/21 08:40 01/01/21 08:40 Labs: Laboratory Results - last 24 hr 01/01/21 01/01/21 08:40 08:40 WBC 5.2 RBC 3.42 L Hgb 11.2 L Hct 33.2 L MCV 97.1 MCH 32.7 H MCHC 33.7 RDW Std Deviation 42.6 RDW Coeff of Brittany 11.9 Plt Count 155 MPV 9.5 Immature Gran % (Auto) 0.200 Neut % (Auto) 48.8 Lymph % (Auto) 25.9 [place] % (Auto) 13.4 H Eos % (Auto) 10.9 H Baso % (Auto) 0.8 Absolute Neuts (auto) 2.6 Absolute Lymphs (auto) 1.35 Nucleated RBC % 0 Sodium 137 Potassium 3.8 Chloride 104 Carbon Dioxide 26.0 Anion Gap 7 BUN 10 Creatinine 0.94 Estim Creat Clear Calc 48.68 Est GFR (MDRD) Af Amer 75 Est GFR (MDRD) Non-Af 62 BUN/Creatinine Ratio 10.6 Glucose 88 Calcium 9.1 Total Bilirubin 0.40 AST 41 H ALT 36 Alkaline Phosphatase 115 Total Protein 6.6 Albumin 3.0 L Globulin 3.6 Albumin/Globulin Ratio 0.8 L Physical Exam Narrative Physical exam: General: Alert, Oriented x3, appears lethargic and frail HEENT: Atraumatic Oral: Moist Mucosa Neck: Supple Lungs: Clear to auscultation Cardiovascular: HS I+II, regular, no murmurs Abdomen: Bowel Sounds Present, Soft, Non Tender Extremities: No edema Skin: No rashes, No breakdown Neurological: Grossly intact Assessment & Plan Assessment/Plan (1) Alcohol dependence: QUALIFIERS: Complication of substance-induced condition: uncomplicated Substance use status: in withdrawal Qualified Code(s): F10.230 - Alcohol dependence with withdrawal, uncomplicated (2) Alcohol withdrawal: QUALIFIERS: Complication of substance-induced condition: uncomplicated Qualified Code(s): F10.230 - Alcohol dependence with withdrawal, uncomplicated PLAN: 1. Acute alcohol withdrawal, continue on the phenobarbital withdrawal protocol 2. Hypertension, controlled, continue lisinopril 3. Debility related to the above, PT/OT to evaluate and treat Will check magnesium and phosphorus level 4. Rest of chronic medical conditions remained stable Meds reviewed Charges/Coding Visit Charges Inpatient E&M: 19756 Subs Hosp L2
[2021-01-01 13:18] LABS: Magnesium 1.7 mg/dL (1.6-2.6); Phosphorus 4.2 mg/dL (2.5-4.9)
[2021-01-01 13:34] VITALS: BP 119/67; PULSE 84; RESP 18; TEMP 36.3; O2SAT 100
--- NOTE | 2021-01-01 14:50 | CASEMGMT ---
Social Work Note SNF is still being recommended for pt. SW in to speak with pt. SW introduced self and role at [facility]. Pt is alert and orientated, answers questions appropriately. SW spoke with pt about SNF recommendation. Pt states to either try [facility] or [facility]. Pt states she doesn't want [facility]. SW explained referral process and that pt will need pre-cert. Pt states understanding. SW placed a call to [facility] and provided referral. SW faxed referral to [phone]. SW also faxed referral to [facility] ([phone]). SW received call from Sandrita at [facility] who states they are able to accept pt. Sandrita provided cell phone at [phone] and also states if this worker cannot get a hold of Sandrita to call main number [phone] and speak with either Darrius or Erica. SHELDON spoke with pt and updated pt that [facility] is able to accept pt. Pt agreeable to [facility]. SHELDON asked pt if this worker could update her Tone and pt gave this worker permission to call Tone to update. SHELDON placed a call to pt's Tone and updated him on acceptance to [facility]. Tone states understanding, asked how pt is able to transport to SNF. SHELDON explained options of family transport or transportation can be arranged but pt can be get a bill for transportation is [facility] arranges transportation. Tone states he will be able to transport pt. SHELDON informed Tone that pt will remain at [facility] until pre-cert is obtained. Tone states understanding. SHELDON placed a call to [facility] to disregard referral. Plan: [facility] pending pre-cert Wendy Crawford FORESTRY INSTRUCTOR, SALES OFFICE MANAGER
[2021-01-01 16:44] VITALS: BP 148/93; PULSE 84; RESP 16; TEMP 36.7; O2SAT 96
[2021-01-01 21:46] VITALS: BP 137/80; PULSE 85; RESP 16; TEMP 36.6; O2SAT 98
[2021-01-01] MEDS: Atorvastatin Calcium 80 MG Tablet PO (21:51)
[2021-01-01] MEDS: traZODone 100 MG Tablet PO (21:51)
[2021-01-02] VITALS (7 sets, daily range): BP systolic 122–140; BP diastolic 61–86; PULSE 81–89; RESP 16–18; TEMP 36.4–37.1; O2SAT 93–99
[2021-01-02] MEDS: Levothyroxine 25 MCG TABLET PO (05:37)
--- NOTE | 2021-01-02 10:12 | PCM.PN.HOSP ---
Subjective Subjective Patient was seen and examined. Denied any new complaints. Denied any fever or chills. Objective Data Objective Data Vital Signs: Vital Signs Temp Pulse Resp BP Pulse Ox 98.6 F 81 16 128/61 H 98 01/02/21 03:25 01/02/21 03:25 01/02/21 03:25 01/02/21 03:25 01/02/21 03:25 Oxygen Delivery Method Room Air Weight: 57.7 kg Body Mass Index (BMI) 21.2 Intake & Output: Intake and Output for Last 24 Hours 12/31/20 01/01/21 01/02/21 23:59 23:59 23:59 Intake Total 540 / 540 1354 / 1354 200 / 200 Balance 540 / 540 1354 / 1354 200 / 200 Lab / Micro Data Result Diagrams: 01/01/21 08:40 01/01/21 08:40 Labs: Laboratory Results - last 24 hr 01/01/21 08:40 Phosphorus 4.2 Magnesium 1.7 Physical Exam Narrative Physical exam: General: Alert, Oriented x3, appears lethargic and frail HEENT: Atraumatic Oral: Moist Mucosa Neck: Supple Lungs: Clear to auscultation Cardiovascular: HS I+II, regular, no murmurs Abdomen: Bowel Sounds Present, Soft, Non Tender Extremities: No edema Skin: No rashes, No breakdown Neurological: Grossly intact Assessment & Plan Assessment/Plan (1) Alcohol dependence: QUALIFIERS: Substance use status: in withdrawal Complication of substance-induced condition: uncomplicated Qualified Code(s): F10.230 - Alcohol dependence with withdrawal, uncomplicated (2) Alcohol withdrawal: QUALIFIERS: Complication of substance-induced condition: uncomplicated Qualified Code(s): F10.230 - Alcohol dependence with withdrawal, uncomplicated (3) Severe protein-calorie malnutrition: (4) Hypomagnesemia: (5) Debility: PLAN: 1. Acute alcohol withdrawal, completed withdrawal protocol Cannot be discharged to drug rehab inpatient facility on account of debility 2. Hypertension, controlled, continue lisinopril 3. Debility related to the above, discharge to jail facility is pending 4. Severe protein calorie malnutrition secondary to chronic alcohol use, Structural Engineering Drafting Officer consulted 5. Hypomagnesemia, replaced, recheck today 6. Rest of chronic medical conditions remained stable Meds reviewed Charges/Coding Visit Charges Inpatient E&M: 18613 Subs Hosp L2
[2021-01-02] MEDS: Thiamine Hydrochloride 100 MG Tablet PO (10:33)
[2021-01-02] MEDS: Pantoprazole Sodium 40 MG Tablet PO (10:33)
[2021-01-02] MEDS: Lisinopril 20 MG Tablet PO (10:33)
[2021-01-02] MEDS: Folic Acid 1 MG Tablet PO (10:33)
[2021-01-02] MEDS: Aspirin 81 MG TAB.CHEW PO (10:34)
[2021-01-02 12:16] LABS: Magnesium 2.3 mg/dL (1.6-2.6)
[2021-01-02] MEDS: hydrOXYzine PAM 25 MG Capsule 50 MG PO ×2 (12:27→21:48)
--- NOTE | 2021-01-02 13:04 | CASEMGMT ---
Social Work Note SHELDON received call from Sandrita at [facility], pre-cert is still pending. SHELDON informed Sandrita that pt is medically ready for discharge once pre-cert is obtained. Plan: [facility] pending pre-cert Wendy Crawford COLD WORKING INSPECTOR, SEISMOGRAPH OPERATOR HELPER
[2021-01-02] MEDS: Atorvastatin Calcium 80 MG Tablet PO (21:43)
[2021-01-02] MEDS: traZODone 100 MG Tablet PO (21:48)
[2021-01-03 04:12] VITALS: BP 122/68; PULSE 88; RESP 16; TEMP 36.4; O2SAT 95
[2021-01-03] MEDS: Levothyroxine 25 MCG TABLET PO (06:18)
[2021-01-03 07:46] VITALS: BP 146/89; PULSE 84; RESP 14; TEMP 36.6; O2SAT 97
[2021-01-03] MEDS: Gabapentin 300 MG Capsule PO ×2 (07:56→20:12)
[2021-01-03] MEDS: Pantoprazole Sodium 40 MG Tablet PO (07:56)
[2021-01-03] MEDS: Lisinopril 20 MG Tablet PO (07:56)
[2021-01-03] MEDS: Acetaminophen 325 MG Tablet 650 MG PO ×2 (07:56→13:27)
[2021-01-03] MEDS: Folic Acid 1 MG Tablet PO (07:57)
[2021-01-03] MEDS: Aspirin 81 MG TAB.CHEW PO (07:57)
[2021-01-03] MEDS: Thiamine Hydrochloride 100 MG Tablet PO (07:57)
--- NOTE | 2021-01-03 12:40 | CASEMGMT ---
Addendum entered by Wendy Crawford 01/03/21 16:19: SW updated pt that pre-cert is still pending. Pt states understanding. Addendum entered by Wendy Crawford 01/03/21 14:13: SHELDON placed a call to Sandrita at [facility] and left message for update on pt's pre-cert. Original Note: Social Work Note SHELDON faxed updated clinicals to [facility]. Plan: [facility] pending pre-cert Wendy Crawford ENVIRONMENTAL TEST TECHNICIAN, CHIEF DISPATCHER
--- NOTE | 2021-01-03 12:59 | PCM.PN.HOSP ---
Subjective Subjective No new complaints. Objective Data Objective Data Vital Signs: Vital Signs Temp Pulse Resp BP Pulse Ox 97.8 F 84 14 146/89 H 97 01/03/21 07:46 01/03/21 07:46 01/03/21 07:46 01/03/21 07:46 01/03/21 07:46 Oxygen Delivery Method Room Air Weight: 57.7 kg Body Mass Index (BMI) 21.2 Intake & Output: Intake and Output for Last 24 Hours 01/01/21 01/02/21 01/03/21 23:59 23:59 23:59 Intake Total 1354 / 1354 1100 / 1700 900 / 900 Balance 1354 / 1354 1100 / 1700 900 / 900 Lab / Micro Data Result Diagrams: 01/01/21 08:40 01/01/21 08:40 Physical Exam Narrative Physical exam: General: Alert, Oriented x3, appears lethargic and frail HEENT: Atraumatic Oral: Moist Mucosa Neck: Supple Lungs: Clear to auscultation Cardiovascular: HS I+II, regular, no murmurs Abdomen: Bowel Sounds Present, Soft, Non Tender Extremities: No edema Skin: No rashes, No breakdown Neurological: Grossly intact Assessment & Plan Assessment/Plan (1) Alcohol dependence: QUALIFIERS: Complication of substance-induced condition: uncomplicated Substance use status: in withdrawal Qualified Code(s): F10.230 - Alcohol dependence with withdrawal, uncomplicated (2) Alcohol withdrawal: QUALIFIERS: Complication of substance-induced condition: uncomplicated Qualified Code(s): F10.230 - Alcohol dependence with withdrawal, uncomplicated (3) Severe protein-calorie malnutrition: (4) Hypomagnesemia: (5) Debility: PLAN: 1. Acute alcohol withdrawal, completed withdrawal protocol Cannot be discharged to drug rehab inpatient facility on account of debility 2. Hypertension, controlled, continue lisinopril 3. Debility related to the above, discharge to senior living facility is pending 4. Severe protein calorie malnutrition secondary to chronic alcohol use, Technical Healthcare Consultant consulted, on supplements 5. Hypomagnesemia, resolved 6. Rest of chronic medical conditions remained stable Meds reviewed Charges/Coding Visit Charges Inpatient E&M: 66070 Subs Hosp L2
[2021-01-03 13:23] VITALS: BP 103/67; PULSE 86; RESP 16; TEMP 36.6; O2SAT 93
[2021-01-03] MEDS: hydrOXYzine PAM 25 MG Capsule 50 MG PO ×2 (13:27→23:26)
[2021-01-03 20:00] VITALS: BP 132/82; PULSE 86; RESP 18; TEMP 36.5; O2SAT 99
[2021-01-03 20:03] VITALS: BP 132/82; PULSE 86; RESP 18; TEMP 36.5; O2SAT 99
[2021-01-03] MEDS: Atorvastatin Calcium 80 MG Tablet PO (20:12)
[2021-01-03] MEDS: traZODone 100 MG Tablet PO (20:12)
[2021-01-04 02:40] VITALS: BP 116/64; PULSE 86; RESP 16; TEMP 36.3; O2SAT 97
[2021-01-04] MEDS: Levothyroxine 25 MCG TABLET PO (05:17)
[2021-01-04] MEDS: hydrOXYzine PAM 25 MG Capsule 50 MG PO ×3 (05:20→20:07)
[2021-01-04] MEDS: Aspirin 81 MG TAB.CHEW PO (07:48)
[2021-01-04] MEDS: Pantoprazole Sodium 40 MG Tablet PO (07:48)
[2021-01-04] MEDS: Folic Acid 1 MG Tablet PO (07:48)
[2021-01-04] MEDS: Thiamine Hydrochloride 100 MG Tablet PO (07:48)
[2021-01-04] MEDS: Lisinopril 20 MG Tablet PO (07:49)
[2021-01-04] MEDS: Gabapentin 300 MG Capsule PO (07:50)
[2021-01-04 08:21] VITALS: BP 111/79; PULSE 85; RESP 16; TEMP 36.5; O2SAT 96
--- NOTE | 2021-01-04 10:47 | CASEMGMT ---
Addendum entered by Wendy Crawford 01/04/21 14:30: SHELDON placed a call to Sandrita at [facility], pre-cert is still pending. Original Note: Social Work Note SW received message from Sandrita at [facility] stating pt's insurance is requesting additional clinicals. SHELDON faxed updated clinicals to [facility]. Plan: [facility] pending pre-cert Wendy Crawford SURVEY TECHNICIAN, AUDITING SPECIALIST
--- NOTE | 2021-01-04 13:21 | PCM.PN.HOSP ---
Subjective Subjective Patient was seen and examined. She denied any new complaints. No acute events overnight. Awaiting on discharge planning. Objective Data Objective Data Vital Signs: Vital Signs Temp Pulse Resp BP Pulse Ox 97.7 F L 85 16 111/79 96 01/04/21 08:21 01/04/21 08:21 01/04/21 08:21 01/04/21 08:21 01/04/21 08:21 Oxygen Delivery Method Room Air Weight: 57.7 kg Body Mass Index (BMI) 21.2 Intake & Output: Intake and Output for Last 24 Hours 01/02/21 01/03/21 01/04/21 23:59 23:59 23:59 Intake Total 1100 / 1700 1400 / 1900 1250 / 1250 Balance 1100 / 1700 1400 / 1900 1250 / 1250 Lab / Micro Data Result Diagrams: 01/01/21 08:40 01/01/21 08:40 Physical Exam Narrative Physical exam: General: Alert, Oriented x3, appears frail HEENT: Atraumatic Oral: Moist Mucosa Neck: Supple Lungs: Clear to auscultation Cardiovascular: HS I+II, regular, no murmurs Abdomen: Bowel Sounds Present, Soft, Non Tender Extremities: No edema Skin: No rashes, No breakdown Neurological: Grossly intact Assessment & Plan Assessment/Plan (1) Alcohol dependence: QUALIFIERS: Substance use status: in withdrawal Complication of substance-induced condition: uncomplicated Qualified Code(s): F10.230 - Alcohol dependence with withdrawal, uncomplicated (2) Alcohol withdrawal: QUALIFIERS: Complication of substance-induced condition: uncomplicated Qualified Code(s): F10.230 - Alcohol dependence with withdrawal, uncomplicated (3) Severe protein-calorie malnutrition: (4) Hypomagnesemia: (5) Debility: PLAN: 1. Acute alcohol withdrawal, completed withdrawal protocol Cannot be discharged to drug rehab inpatient facility on account of debility 2. Hypertension, controlled, continue lisinopril 3. Debility related to the above, discharge to halfway facility is pending 4. Severe protein calorie malnutrition secondary to chronic alcohol use, Technical Proposal Writer consulted, on supplements 5. Hypomagnesemia, resolved 6. Rest of chronic medical conditions remained stable Meds reviewed Charges/Coding Visit Charges Inpatient E&M: 46121 Subs Hosp L2
[2021-01-04 14:55] VITALS: BP 147/77; PULSE 87; RESP 16; TEMP 36.6; O2SAT 98
--- NOTE | 2021-01-04 16:10 | CASEMGMT ---
Social Work Note SW is leaving soon for the weekend. SW placed a call to Sandrita at [facility], pre-cert is still pending. SW gave Sandrita direct number for [facility] in the event pre-cert is obtained. SW completed convalescent 7000 in HENS. SW placed Green sheet, transport form, COVID tool, and HENS on pt's chart in the event pre-cert is obtained. SW in to speak with pt. SW updated pt that pre-cert is still pending, pt to remain at [facility] until pre-cert is obtained. Pt gave this worker permission to call her spouse Tone to update. SW placed a call to Tone and updated him that pre-cert is still pending and pt will remain at [facility] until pre-cert is obtained. Tone states understanding. Plan: [facility] pending pre-cert. Pt will need COVID test on day of discharge. Wendy Crawford SENIOR DIRECTOR, MANAGER FINANCIAL SERVICES
[2021-01-04] MEDS: Ondansetron 8 MG Tablet PO (18:20)
[2021-01-04 20:03] VITALS: BP 143/76; PULSE 87; RESP 16; TEMP 36.6; O2SAT 97
[2021-01-04] MEDS: traZODone 100 MG Tablet PO (21:15)
[2021-01-04] MEDS: Atorvastatin Calcium 80 MG Tablet PO (21:15)
[2021-01-04] MEDS: 0.9% Saline Lock 10 ML Syringe IV (22:22)
[2021-01-05] MEDS: Gabapentin 300 MG Capsule PO (00:24)
[2021-01-05 02:11] VITALS: BP 137/79; PULSE 83; RESP 16; TEMP 36.6; O2SAT 95
[2021-01-05 06:00] VITALS: BP 118/77; PULSE 83; RESP 16; TEMP 36.9; O2SAT 94
[2021-01-05] MEDS: hydrOXYzine PAM 25 MG Capsule 50 MG PO (06:04)
[2021-01-05] MEDS: Levothyroxine 25 MCG TABLET PO (06:04)
[2021-01-05 06:54] LABS: Absolute Lymphocyte Count 1.87 X10^3/uL (0.83-4.51); Basophil# 0.07 X10^3/uL; Basophil% 1.1 % (0-1); Eosinophil# 0.67 X10^3/uL; Eosinophils% 10.2 % (0-5); Hematocrit 35.3 % (37-47); Hemoglobin 11.6 g/dL (12.0-15.0); Lymphocyte # 1.87 X10^3/ul (0.83-4.51); Lymphocyte % 28.5 % (19-41); Mean Corp Hgb Conc 32.9 g/dL (32-36); Mean Corpuscular Volume 97.2 fL (81-99); Mean Platelet Vol. 9.5 fl (6.2-12.0); Monocyte# 0.89 X10^3/uL; Monocyte% 13.6 % (0-10); NRBC Flagged by Analyzer 0 % (0-5); Neutrophil # 3.04 X10^3/uL (2.7-7.7); Neutrophil % 46.3 % (47-70); Platelet Count 271 K/mm3 (150-450); RBC Distribution Width CV 11.6 % (11.6-14.6); RBC Distribution Width SD 41.8 fl (35.1-43.9); Red Blood Count 3.63 M/mm3 (4.2-5.4); White Blood Count 6.6 K/mm3 (4.4-11.0)
[2021-01-05 07:25] LABS: ALB/GLOB Ratio 0.8 RATIO (0.9-2.4); AST(SGOT) 48 U/L (15-37); Alanine Aminotransfer ALT/SGPT 41 U/L (13-56); Albumin, Serum 3.2 g/dL (3.2-5.0); Alkaline Phosphatase 129 U/L (45-117); Anion Gap 6 (5-15); BUN 12 mg/dL (7-18); BUN/Creat Ratio 12.1 RATIO (10-20); Calcium,Total 9.8 mg/dL (8.5-10.1); Chloride 103 mmol/L (98-107); Creatinine, Serum 0.99 mg/dL (0.55-1.02); EST Glomerular Filtration Rate 59 mL/min (>60); Est Glom Filt Rate - Afr Amer 71 mL/min (>60); Estimated Creatinine Clearance 46.22 ml/min; Globulin 3.8 g/dL (2.2-4.2); Glucose 91 mg/dL (74-106); Potassium 4.1 mmol/L (3.5-5.1); Sodium Level 137 mmol/L (136-145)
[2021-01-05] MEDS: Aspirin 81 MG TAB.CHEW PO (07:48)
[2021-01-05] MEDS: Lisinopril 20 MG Tablet PO (07:48)
[2021-01-05] MEDS: Thiamine Hydrochloride 100 MG Tablet PO (07:48)
[2021-01-05] MEDS: Folic Acid 1 MG Tablet PO (07:48)
[2021-01-05] MEDS: Pantoprazole Sodium 40 MG Tablet PO (07:48)
--- NOTE | 2021-01-05 08:10 | NURSING ---
pt called and asked about pt being discharged. told that pt still has not been discharged yet, but may be depending on if pre cert has been obtained. nursing will check with social serv. to see if pre cert accepted pt. stated he had a [address] that he was on way to get her. told that he should not come yet till we know for sure that pt will be discharged. stated that he was going to come anyway, that he did not mind if he had to go back home. shyam that nursing will call him when we find out any info.
[2021-01-05 08:22] VITALS: BP 128/67; PULSE 81; RESP 16; TEMP 36.8; O2SAT 94
--- NOTE | 2021-01-05 11:45 | CASEMGMT ---
SHELDON Note SW received message to contact [facility] RN regarding patient and her precertification. SHELDON called [facility] and was updated that patient's said that patient can come to SNF. SHELDON called [facility] and spoke to Ryanne who voiced she is not 100% sure that patient can return but will check. SHELDON did not here a update regarding patient so this data analyst report writer called back to [facility] and spoke to Alyson who recommended I call Sandrita in Admission [phone]. SHELDON asked for update. Sandrita agreed to call this data analyst report writer back. Sandrita called this data analyst report writer back and said that precert was received for patient and patient can come today. RN to RN is [phone]. [facility] RN updated updated and bar and filler assembler updated. Plan: [facility]. Vivi WALKER
--- NOTE | 2021-01-05 12:43 | PCM.TXEXTCAR ---
Diet 12/29/20 16:23 Diet: Regular - No Added Salt Food consistency:: Regular Liquid Consistency:: Regular/Thin Type of Dietary Supplement:: Magic Cup Dessert Is pt able to select menu?: Yes Diet Comments: Blanca magic cup milk shake w/break;blanca magic cup w/ lunch&dinner; no eggs Routine Orders/Code Status Keep PO Greater than or Equal to (%): 94 (Encourage use of incentive spirometer) Routine Lab Work: CBC (within 3 days) and BMP (within 3 days) Code Status: Full Code Therapies Physical Therapy: Eval and Treat Occupational Therapy: Eval and Treat Problem/Diagnosis (1) Alcohol dependence: Status: Acute (2) Alcohol withdrawal: Status: Acute (3) Severe protein-calorie malnutrition: Status: Acute (4) Hypomagnesemia: Status: Acute (5) Debility: Status: Acute Allergies/Procedures Done in Hospital Allergies No Known Allergies Allergy (Verified 12/28/20 11:57) Procedures: None Type of Care/Length of Stay Estimated LOS: Convalescent Care Less Than 30 days Type of Care Needed: Skilled Rehab Potential: Good Prognosis: Good Additional Orders/Day of Discharge Day of Discharge: 01/05/21 Dietary and Speech Recommendations Dietitian Recommendations/Changes: Continue liberalize diet to regular/no added salt given severe protein-energy malnutrition. Continue blanca magic cup BID w/ lunch and dinner in addition to blanca magic cup milkshake w/ breakfast to provide an additional 870 kcal and 27 gm protein if consumed. Pt dislikes ensure (both enlive and clear) so, will not provide per pt request. Discharge Plan Admission Admit Date/Time: 12/28/20 14:40 Primary Reason for Your Visit: DEBILITY, ACUTE ALCOHOL WITHDRAWAL Attending Provider: Oksana Gu Discharge Orders/Prescriptions Prescriptions: Continued lisinopril 20 mg tablet 20 mg PO DAILY RF: 0 rosuvastatin 40 mg tablet 40 mg PO QHS RF: 0 thiamine HCl (vitamin B1) 100 mg Tablet 100 mg PO DAILY RF: 0 omeprazole 40 mg Capsule,Delayed Release(Dr/Ec) 40 mg PO DAILY RF: 0 aspirin 81 mg Tablet 81 mg PO DAILY RF: 0 No Action levothyroxine 25 mcg tablet 25 mcg PO DAILY RF: 0 Referrals / Follow Up: [facility] [Other] - Within 2 Weeks [facility] [Other] Disposition Disposition (needs filled in before D/C Order can be placed): [facility]
--- NOTE | 2021-01-05 12:44 | DS.PCM_ITS ---
Providers Date of Admission: 12/28/20 Date of Discharge: 01/05/21 Primary Care Physician: [facility] Reason For Visit: ETOH WITHDRAWAL Diagnosis Discharge Diagnosis (1) Alcohol dependence: Status: Chronic Code(s): F10.20 - Alcohol dependence, uncomplicated Qualifiers: Complication of substance-induced condition: uncomplicated Substance use status: in withdrawal Qualified Code(s): F10.230 - Alcohol dependence with withdrawal, uncomplicated (2) Alcohol withdrawal: Status: Resolved Code(s): F10.239 - Alcohol dependence with withdrawal, unspecified Qualifiers: Complication of substance-induced condition: uncomplicated Qualified Code(s): F10.230 - Alcohol dependence with withdrawal, uncomplicated (3) Severe protein-calorie malnutrition: Status: Acute Code(s): E43 - Unspecified severe protein-calorie malnutrition (4) Hypomagnesemia: Status: Resolved Code(s): E83.42 - Hypomagnesemia (5) Debility: Status: Acute Code(s): R53.81 - Other malaise Medications at Discharge Home Medications aspirin 81 mg PO DAILY 12/28/20 levothyroxine 25 mcg PO DAILY 12/28/20 lisinopril 20 mg PO DAILY 12/28/20 omeprazole 40 mg PO DAILY 12/28/20 rosuvastatin 40 mg PO QHS 12/28/20 thiamine HCl (vitamin B1) 100 mg PO DAILY 12/28/20 folic acid 1 mg PO DAILY@0800 #0 tab 01/05/21 Hospital Course Operations None Procedures None Summary of Care Provided Minutes Spent on Discharge: 45 Hospital Course: 70-year-old with past medical history of chronic abuse who comes in requesting medical stabilization from alcohol. Patient was recently discharged from a hospital in [facility]. Last known drink was 3 days prior to admission. Patient reports daily use of beer; 10-12. She was admitted to the [facility] floor and managed on the alcohol withdrawal protocol. Patient completed her treatment. She however was very weak, she was seen by PT and OT skilled for discharge to fdc facility. Patient waited for some days in the [facility] to get insurance approval for discharge to the fdc facility. Physical Exam Narrative General: Alert, Oriented x3, appears lethargic and frail HEENT: Atraumatic Oral: Moist Mucosa Neck: Supple Lungs: Clear to auscultation Cardiovascular: HS I+II, regular, no murmurs Abdomen: Bowel Sounds Present, Soft, Non Tender Extremities: No edema Skin: No rashes, No breakdown Neurological: Grossly intact Weight / BMI Weight Weight: 57.7 kg Body Mass Index (BMI) 21.2 ABG / Lab / Microbiology Data Result Diagrams: 01/05/21 06:35 01/05/21 06:35 Laboratory: Laboratory Results - last 24 hr 01/05/21 01/05/21 06:35 06:35 WBC 6.6 RBC 3.63 L Hgb 11.6 L Hct 35.3 L MCV 97.2 MCH 32.0 MCHC 32.9 RDW Std Deviation 41.8 RDW Coeff of Brittany 11.6 Plt Count 271 MPV 9.5 Immature Gran % (Auto) 0.300 Neut % (Auto) 46.3 L Lymph % (Auto) 28.5 Orange % (Auto) 13.6 H Eos % (Auto) 10.2 H Baso % (Auto) 1.1 H Absolute Neuts (auto) 3.0 Absolute Lymphs (auto) 1.87 Nucleated RBC % 0 Sodium 137 Potassium 4.1 Chloride 103 Carbon Dioxide 28.0 Anion Gap 6 BUN 12 Creatinine 0.99 Estim Creat Clear Calc 46.22 Est GFR (MDRD) Af Amer 71 Est GFR (MDRD) Non-Af 59 L BUN/Creatinine Ratio 12.1 Glucose 91 Calcium 9.8 Total Bilirubin 0.30 AST 48 H ALT 41 Alkaline Phosphatase 129 H Total Protein 7.0 Albumin 3.2 Globulin 3.8 Albumin/Globulin Ratio 0.8 L Microbiology: Microbiology 01/05/21 11:50 SARS-CoV-2 Antigen (Rapid) - Final Mucosa - Nose Microbiology 01/05/21 11:50 Mucosa - Nose SARS-CoV-2 Antigen (Rapid) - Final D/C Instructions Discharge Diet: Low fat / Low cholesterol and 2000 mg Sodium Diet Meaningful Use Info Meaningful Use Diagnoses (Choose all that apply): None applicable Discharge Plan Admission Admit Date/Time: 12/28/20 14:40 Primary Reason for Your Visit: DEBILITY, ACUTE ALCOHOL WITHDRAWAL Attending Provider: Oksana Gu Discharge Orders/Prescriptions Prescriptions: New folic acid 1 mg Tablet 1 mg PO DAILY@0800 Qty: 0 RF: 0 Continued lisinopril 20 mg tablet 20 mg PO DAILY RF: 0 rosuvastatin 40 mg tablet 40 mg PO QHS RF: 0 thiamine HCl (vitamin B1) 100 mg Tablet 100 mg PO DAILY RF: 0 omeprazole 40 mg Capsule,Delayed Release(Dr/Ec) 40 mg PO DAILY RF: 0 aspirin 81 mg Tablet 81 mg PO DAILY RF: 0 No Action levothyroxine 25 mcg tablet 25 mcg PO DAILY RF: 0 Referrals / Follow Up: [facility] [Other] - Within 2 Weeks [facility] [Other] Disposition Disposition (needs filled in before D/C Order can be placed): [facility] Charges/Coding Visit Charges Inpatient E&M: 28631 Disch Hosp
--- NOTE | 2021-01-05 12:48 | NURSING ---
here to pick pt [facility].
== END 2021-01-05 14:35 | disposition skilled nursing facility (03) | DRG 896 ==
LOC: ED 13:53 → MS3 15:02
PROVIDERS: Nurse Practitioner Family; Admitting Provider Internal Medicine; Emergency Provider Emergency Medicine; Visit Provider Internal Medicine
DX: F10.230 Alcohol dependence with withdrawal, uncomplicated (principal); E43 Unspecified severe protein-calorie malnutrition; E87.1 Hypo-osmolality and hyponatremia; Z68.21 Body mass index [BMI] 21.0-21.9, adult; E83.42 Hypomagnesemia; R53.81 Other malaise; Z20.822 Contact with and (suspected) exposure to COVID-19; I48.91 Unspecified atrial fibrillation; I10 Essential (primary) hypertension; E78.5 Hyperlipidemia, unspecified; E03.9 Hypothyroidism, unspecified; E55.9 Vitamin D deficiency, unspecified; K21.9 Gastro-esophageal reflux disease without esophagitis; F32.9 Major depressive disorder, single episode, unspecified; F41.9 Anxiety disorder, unspecified; Z79.82 Long term (current) use of aspirin; Z79.890 Hormone replacement therapy; Z79.899 Other long term (current) drug therapy; Z85.3 Personal history of malignant neoplasm of breast; Z90.11 Acquired absence of right breast and nipple; Z95.0 Presence of cardiac pacemaker
CPT/HCPCS: 36415; 80048; 80053; 80307; 81001; 82077; 83735; 84100; 85025; 85610; 87426; 93005; 97110; 97162; 97166; 97530; 97535; 97802; 97803; 99285; A4216